=== PATIENT | male | born 1995 | race African-American/Black ===

== ENCOUNTER 2017-09-04 10:58 | Day surgery (SDC) | payer BC ==
[2017-09-03 14:23] VITALS: BMI 23.7
[2017-09-04] MEDS ORDERED: PROPOFOL 20 ML ONE (12:37)
[2017-09-04] MEDS ORDERED: LIDOCAINE HCL/PF 2% SDV 5ML VIAL ONE (12:37)
[2017-09-04] MEDS ORDERED: ceFAZolin SODIUM 1 GM VIAL ONE (12:37)
[2017-09-04] MEDS ORDERED: MIDAZOLAM HCL 2 MG/2 ML SINGLE DOSE VIAL ONE (12:38)
[2017-09-04] MEDS ORDERED: LIDOCAINE HCL 1%, 10 MG/ML (20ML VIAL) ONE (12:39)
[2017-09-04] MEDS ORDERED: BUPIVACAINE HCL/PF 0.25% (2.5MG/ML) 10 ML VIAL ONE (12:39)
[2017-09-04] MEDS ORDERED: ceFAZolin SODIUM 1 GM VIAL IVPB ONE (12:50)
[2017-09-04] MEDS ORDERED: DEXAMETHASONE SOD PHOSPHATE 4 MG/1 ML VIAL ONE (13:19)
[2017-09-04] MEDS ORDERED: LIDOCAINE HCL 1%, 10 MG/ML (20ML VIAL) INF ONE (13:32)
[2017-09-04] MEDS ORDERED: DEXAMETHASONE SOD PHOSPHATE 4 MG/1 ML VIAL IVPUSH ONE (13:35)
[2017-09-04] MEDS ORDERED: IBUPROFEN 800 MG/8 ML IJ IVPB PRN (13:49)
[2017-09-04] MEDS ORDERED: oxyCODONE HCL 5 MG TABLET PO PRN (13:49)
[2017-09-04] MEDS ORDERED: ONDANSETRON 4 MG/2 ML VIAL IVPUSH PRN (13:49)
--- NOTE | 2017-09-04 13:58 | OP ---
Operative Note - Note: Operative Date: 09/04/17 Pre-Operative Diagnosis: Exostosis left 5th hammertoe Operation: Left 5th toe exostectomy Findings: exostosis noted left 5th proximal lateral distal phalanx Surgeon: Stacy Gonzalez Anesthesiologist/EMT DRIVER: Katie Long Anesthesia: MAC Specimens Removed: bone Estimated Blood Loss (mls): 1
[2017-09-04] MEDS ORDERED: LACTATED RINGERS SOLUTION 1,000 ML IV SCH (14:00)
[2017-09-04 15:02] VITALS: TEMP 98.1
[2017-09-04 17:30] VITALS: BP 137/62; PULSE 68
--- NOTE | 2017-09-06 13:56 | PATH ---
Surgical Pathology Report Patient Name: RAMÓN KANG [facility]. Rec. #: [id number] /Age/Gender: 1995 (Age: 22) / M Account: [id number] Location: [facility] Taken: 09/04/2017 Received: 09/05/2017 Reported: 09/06/2017 Physicians: Stacy Gonzalez DPM Specimen(s) Received LEFT TISSUE AND BONE LEFT 5TH TOE Clinical History Exostosis left fifth toe Final Diagnosis SOFT TISSUE AND BONE, FIFTH TOE, LEFT, EXCISION: BONE WITH DEGENERATIVE CHANGES. SKIN AND UNDERLYING SUBCUTANEOUS TISSUE WITH HYPERKERATOSIS. Electronically Signed Astrid Guerrero M.D. Gross Description Received in formalin labeled "soft tissue/bone left fifth toe," are 2 hayes bone fragments averaging 0.5 cm in greatest dimension. Also received within the same container is a 1.3 x 0.5 cm hayes, elliptical, unoriented skin shave. The skin is bisected and the specimen is entirely submitted in one cassette, following decalcification. 09/05/201709/05/2017
--- NOTE | 2017-10-07 02:21 | OP ---
DATE OF OPERATION: 09/04/2017 PREOPERATIVE DIAGNOSIS: Exostosis of left 5th toe. POSTOPERATIVE DIAGNOSIS: Exostosis of left 5th toe. SURGEON: Yuliet Gudino DPM CONTINUOUS MINING OPERATOR: None. ANESTHESIA: Local with IV sedation. HEMOSTASIS: Pneumatic ankle tourniquet. ANESTHESIOLOGIST: Katie Long MD ESTIMATED BLOOD LOSS: 1 mL. MATERIALS: None. PATHOLOGY: Bone. COMPLICATIONS: None. OPERATIVE PROCEDURE: The patient was brought to the operating room and placed on the operating table in the supine position. A pneumatic ankle tourniquet was then placed on the patient's left ankle. Following IV sedation, local anesthesia was obtained utilizing 3 mL of a 1:1 mixture of 1% lidocaine plain and 0.25% Marcaine plain to the left 5th toe. The left foot was then scrubbed, prepped, and draped in the usual aseptic manner and an Esmarch bandage was then utilized to exsanguinate the patient's left foot and the tourniquet was inflated. Attention was directed to the distal lateral aspect of the left 5th toe. A two-conversion, 1.5-cm semi-elliptical incision was made running along the distal lateral aspect of the left 5th toe at the distal interphalangeal joint. The incision was deepened to the subcutaneous tissues with care to retract all vital structures. The ellipse was removed with sharp and blunt dissection. All bleeders were ligated and cauterized. It was noted that there was a prominent 50% lateral aspect of the toe, especially the distal phalanx. The incision was carried deep to bone. Soft tissue structures were removed off of the bone and the exostosis was visualized at the distal phalanx. The lateral aspect of the distal phalanx was then removed using a double-action bone cutter. The exostosis was then removed from the operating table and sent to pathology. The area was then smoothed using a bone rasp. The wound was then flushed with copious amounts of sterile saline and the subcutaneous tissue was reapproximated using 4-0 Vicryl and the skin was closed using 4-0 nylon. Upon completion of the procedure, a total of 2.0 mL of 1:4 mixture of Decadron and 0.25% Marcaine plain was infiltrated around the surgical site. The incision was dressed with Betadine-soaked Adaptic and covered with sterile compressive dressings such as 4 x 4s and Isra. The tourniquet was then deflated and had immediately had return to all digits of the left foot. The foot was then Derian wrapped. The patient tolerated the procedure well and was transferred to the recovery room with vital signs stable and the vascular status intact to the feet. Following postoperative management, the patient was discharged and given instructions and prescriptions, which were discussed prior to the surgery. YULIET GUDINO DPM [id number]
== END 2017-09-04 17:45 | disposition home or self-care (01) ==
LOC: JASU-SURG 10:58
PROVIDERS: ATTEND Podiatrist Foot Surgery
PROC: 0SRQ0JZ Replacement of Left Toe Phalangeal Joint with Synthetic Substitute, Open Approach (ICD-10-PCS; 2017-09-04)
PROC: 0QBR0ZZ Excision of Left Toe Phalanx, Open Approach (ICD-10-PCS; principal; 2017-09-04 12:30)
DX: M20.42 Other hammer toe(s) (acquired), left foot (principal); M89.9 Disorder of bone, unspecified
CPT/HCPCS: 73630-TC-LT; 88304-TC; 88311-TC; 94760